=== PATIENT | female | born 1975 | race Caucasian/White ===

== ENCOUNTER 2021-02-16 20:46 | Emergency (ER) | payer OTHER, SELFPAY ==
--- NOTE | ~2021-02-16 | XR_ITS ---
EXAMINATION: XR wrist LT min 3V DATE: 02/17/2021 00:49 INDICATION: Distal left radius fracture status post reduction. TECHNIQUE: 3 views of left wrist were obtained. COMPARISON: Left wrist radiographs 02/16/2021 FINDINGS: There is a comminuted fracture of distal radius with involvement of the distal radioulnar j oint and distal articular surface. The main distal fracture fragment demonstrates impaction and dorsa l angulation. There is 22 degrees dorsal tilt of the distal articular surface. Ulnar styloid is intac t. Joint spaces are normal. IMPRESSION: 1. Comminuted intra-articular fracture of distal radius with improvement in alignment. Reviewed, dictated and finalized at location A. MAPPER IMPRESSION: 1. Comminuted intra-articular fracture of distal radius with improvement in ali gnment.
--- NOTE | ~2021-02-16 | XR_ITS ---
EXAMINATION: XR wrist LT 2V EXAM DATE: 02/16/2021 21:21 INDICATION: Fall, left wrist pain and swelling. Initial encounter. TECHNIQUE: Frontal, oblique, lateral projections of the left wrist. There is no prior study for dayday benítez. FINDINGS: There is acute closed posttraumatic mildly comminuted fracture of the left radial distal m etaphysis extending into the radiocarpal joint. There is about 40 degrees of posterior angulation. No significant displacement. Fracture line is identified extending into the radiocarpal joint. IMPRESSION: Acute left radial distal metaphyseal intra-articular fractures. Posterior angulation. Reviewed, dictated and finalized at location A. TY SHERIFF BAILIFF IMPRESSION: Acute left radial distal metaphyseal intra-articular fractures. Pos terior angulation.
[2021-02-16 21:04] VITALS: BP 104/56; PULSE 73; RESP 16; TEMP 36.4; O2SAT 100
[2021-02-16] MEDS: ONDANSETRON HCL ODT 4 MG TABLET PO (23:03)
[2021-02-16] MEDS: HYDROcodone/acetaminophen (*CRX) 7.5-325 MG TABLET 1 TAB PO (23:03)
[2021-02-16] MEDS: IBUPROFEN 400 MG TABLET 800 MG PO (23:03)
--- NOTE | 2021-02-16 23:35 | PC.NURSE ---
Assumed care of pt at this time. EDP Dr Abdi at bedside for assessment.
[2021-02-16 23:50] VITALS: BP 109/68; PULSE 84; RESP 18; O2SAT 99
--- NOTE | 2021-02-17 00:13 | PC.NURSE ---
EDP Dr Abdi at bedside for block/splint placement.
--- NOTE | 2021-02-17 00:38 | ED.UPPEXIN ---
HPI - Extremity Injury (Upper) General Chief Complaint: Extremity Injury, Upper Stated Complaint: Left wrist injury Time Seen by Provider: 02/16/21 22:55 Source: patient and family Limitations: no limitations History of Present Illness HPI narrative: Patient tripped and fell prior to arrival to the emergency room, complaining of left wrist pain and deformity. Patient denies other injuries. Related Data Allergies Allergy/AdvReac Type Severity Reaction Status Date / Time No Known Allergies Allergy Verified 02/16/21 21:03 Review of Systems Review of Systems: CONSTITUTIONAL: Denies fever, chills, or sweats. EYES: Denies visual changes, redness, or discharge. ENT: Denies rhinorrhea, congestion, sore throat, or otalgia. CARDIOVASCULAR: Denies chest pain, palpitations, or edema. RESPIRATORY: Denies cough or dyspnea. GASTROINTESTINAL: Denies abdominal pain, nausea, vomiting, or diarrhea. GENITOURINARY: Denies dysuria or hematuria. SKIN: Denies rash or itching. MUSCULOSKELETAL: Denies back pain, joint pain, or myalgia. NEUROLOGIC: Denies headache, numbness, or weakness. PSYCHIATRIC: Denies anxiety or depression. Exam Narrative: General appearance: Well-developed, well-nourished Skin: Normal color Head: Normocephalic, nontraumatic Neck: Supple, nontender Chest and respiratory: Airway patent, no respiratory distress, no accessory muscle use Heart: Regular rate/rhythm Abdomen: Soft, nontender, no organomegaly, quiet bowel sounds Vascular: Normal peripheral pulses, normal capillary refill. Musculoskeletal: Left wrist deformity, pain, swelling Neurologic: Alert and oriented ?3, Course Course Emergency Course: Stable Vital Signs Vital signs: Vital Signs Temperature 36.4 C L 02/16/21 21:04 Pulse Rate 73 02/16/21 21:04 Respiratory Rate 16 02/16/21 21:04 Blood Pressure 104/56 L 02/16/21 21:04 Pulse Oximetry 100 02/16/21 21:04 Temperature 36.4 C L 02/16/21 21:04 Pulse Rate 74 02/17/21 01:13 Respiratory Rate 18 02/17/21 01:13 Blood Pressure 105/64 02/17/21 01:13 Pulse Oximetry 98 02/17/21 01:13 Procedures Orthopedic Fracture Reduction Fracture #1: Fracture Reduction date: 02/17/21 Fracture Reduction time: 01:13 Time Out Performed: Yes (25 minutes) Side: left Fracture Reduction Location: other (wrist) Analgesia: hematoma block Pre-Procedure Neuro Vascular Exam: normal Technique: direct manipulation and traction/counter-traction Post Reduction X-rays Demonstrate: acceptable reduction Post-reduction neuro exam: intact Post-reduction vascular exam: intact Splint Applied: Yes Patient Tolerated Procedure: well MDM - Extremity Injury (Upper) Imaging Data Radiologist's impression: Impressions Wrist X-Ray 02/16/21 21:32 IMPRESSION: Acute left radial distal metaphyseal intra-articular fractures. Posterior angulation. Critical Care Time Critical Care Time Critical Care Time: No Discharge Plan Discharge Clinical Impression: Fracture of wrist Qualifiers: Encounter type: initial encounter Fracture type: closed Laterality: left Qualified Code(s): S62.102A - Fracture of unspecified carpal bone, left wrist, initial encounter for closed fracture Patient Disposition: Home, Self-Care Condition: Stable Instructions: Antibiotic Form, Wrist Fracture in Adults (ED), How to Use a Sling (ED), Splint Care (ED), Closed Reduction (ED) Additional Instructions: Call orthopedic for appointment Prescriptions: New hydrocodone-acetaminophen 5-325 mg tablet 1 tablet PO Q6H Qty: 24 RF: 0 Follow-up/Referrals: PHYS
[2021-02-17 01:13] VITALS: BP 105/64; PULSE 74; RESP 18; O2SAT 98
== END 2021-02-17 01:22 | disposition home or self-care (01) ==
PROVIDERS: Emergency Provider Emergency Medicine
DX: S52.572A Other intraarticular fracture of lower end of left radius, initial encounter for closed fracture (principal); W01.0XXA Fall on same level from slipping, tripping and stumbling without subsequent striking against object, initial encounter
CPT/HCPCS: 25605; 73100; 73110; 99285; A4565; A9270

== ENCOUNTER 2021-02-23 01:44 | Day surgery (SDC) | payer SELFPAY ==
[2021-02-19 08:31] VITALS: BMI 17.9
--- NOTE | 2021-02-19 09:05 | PC.NURSE ---
Addendum entered by Patience Britton RN 02/19/21 09:17: SURGERY 02/23/21 AT 10:30 AM ARRIVE AT 8:30 AM Original Note: Report to the Outpatient Waiting Room, entrance under the green pavilion located off [facility], at time _1000 on date _02/25/21 . OR Time:1200 . - You and your visitor will be asked a series of questions to screen for COVID 19 for your protection. - A mask is required within the hospital. - Only one visitor is allowed at this time. Patient visitors will be guided where to wait when not with patient. Preoperative COVID Testing Requirements: No COVID Test needed if: (proof is required; if not received patient will have Rapid Test prior to entry) - Patient has received COVID Vaccine at least 14 days prior to procedure date or - Patient has positive COVID test result within last 90 days of surgery date. COVID Test needed if above criteria is not met If not COVID vaccinated a COVID test must be conducted within 72 hours of surgery and patient is asked to isolate self from time of testing until procedure. You will go to the [email or web address] for your COVID testing. The [facility] Testing site is located at the corner of [address] [facility]. You will only be called if COVID results are positive and your surgeon may reschedule your elective surgery date. Patients may have clear liquids (water, carbonated beverages, clear teas, apple juice) until 3 hours prior to surgery with a maximum of 20 ounces. - No food from midnight until time of surgery - Infants may have breast milk until 4 hours before surgery, infant formula 6 hours prior to surgery. - Children will be allowed to drink immediately following surgery. If applicable, please bring a bottle or sippy cup to assist with drinking. Juice, water, soda, and popsicles are readily available. For infants on formula, please bring formula the day of surgery. Pacifiers are allowed. Take the following medications with a SIP of water the morning of surgery: NONE Medications to discontinue per physician NONE Date to take last dose Please no make-up, nail panamanian, hairspray, perfume, deodorant, or body powder the day of surgery. No jewelry (including any body piercings) or valuables the day of surgery, leave them at home. Please take a shower or bath the night before, or the morning of, surgery with an antibacterial soap. Wear comfortable, loose fitting clothing. Children are encouraged to wear pajamas. - Jewelry must be removed prior to entering the operating room. Rings and piercings that are not removed may be cut off. - The hospital will not accept responsibility for valuables. - Please leave all valuables, including medications, at home the day of surgery. If you are going home after surgery, a licensed short haul driver must drive you home. - NO public transportation without another adult. - We recommend that an adult stay with you for 24 hours following discharge. - We also recommend that you do not drive, make important decision, drink alcoholic beverages, or take any drugs that were not prescribed by your health care provider for at least 24 hours after your discharge time. For Pediatric surgeries, we recommend two adults accompany the child home (only one inside the building at this time). Follow any additional instructions given to you from your surgeon. VERBAL instructions given to __PATIENT AND SON ESTELA SCHOFIELD and asked if any additional questions and then verbalized understanding. Patient advised to call surgeon office or pre surgery nurse liaison [phone] if any additional questions.
[2021-02-19 09:32] VITALS: BP 102/76; PULSE 60; RESP 16; TEMP 37.1; O2SAT 100
[2021-02-23] VITALS (9 sets, daily range): BP systolic 101–126; BP diastolic 67–81; PULSE 57–83; RESP 12–20; TEMP 36.2–37.4; O2SAT 98–100
--- NOTE | ~2021-02-23 | XR_ITS ---
EXAMINATION: XR surgery orthopedic EXAM DATE: 02/23/2021 11:45 INDICATION: ORIF LT Wrist. TECHNIQUE: Fluoroscopy used during XR surgery orthopedic performed by Dr. Otoniel Whiteside MD. Radi ologist was not present for the imaging or procedure. Total fluoroscopic time of 31 seconds The DA P for this procedure was 0.019 mGym2. A total of 2 images sent to PACS from the exam plus dose repor t. FINDINGS: Frontal and lateral projections demonstrate comminuted left distal radial metaphyseal intr a-articular fractures, surgical fixation with a volar plate, supporting screws. Correlate with cece brasher note. IMPRESSION: Fluoroscopy used during left radial ORIF. Reviewed, dictated and finalized at location A. [employer] ARTISTIC DIRECTOR
--- NOTE | 2021-02-23 08:55 | WPDANESEPPF ---
Anes - Initial Pre Proc Eval Procedure: Operation Date: 02/23/21 10:30 Proposed Procedures p Open Reduction Internal Fixation Left Distal Radius - Otoniel Whiteside MD Date/Time: 02/23/21 08:55 Surgeon: Otoniel Whiteside MD Pre Op Diagnosis: left distal radius fx Patient Data Age: 45 Gender: F Height: 1.57 m Weight: 44.5 kg Last Vital Signs Temp 37.1 C 02/19/21 09:32 Pulse 60 02/19/21 09:32 Resp 16 02/19/21 09:32 BP 102/76 02/19/21 09:32 Pulse Ox 100 02/19/21 09:32 Allergies Allergy/AdvReac Type Severity Reaction Status Date / Time No Known Allergies Allergy Verified 02/19/21 08:41 Home Medications Medication Instructions Recorded Confirmed Type hydrocodone-acetaminophen 1 tablet PO Q6H #24 tablet 02/17/21 02/23/21 Rx acetaminophen [Tylenol Extra 500 mg PO Q6H PRN 02/19/21 02/23/21 History Strength] ibuprofen 200 mg PO Q6H PRN 02/19/21 02/23/21 History Patient hx anesthesia problems: none Family hx anesthesia problems: none Results Review: All pre-operative results and documents have been reviewed as part of the pre-operative evaluation. [facility] Surgical History Surgical History (Updated 02/23/21 @ 08:55 by Khalif Godinez DO) History of appendectomy Social History Social History Smoking status: Never smoker Alcohol intake: never Substance use: never Living arrangements: with family Spiritual care concerns: No Anes - Eval Final PreProcedure Day of Procedure 02/23/21 08:55 Patient weight: thin Heart: regular rate and rhythm Lungs: clear to auscultation and normal air movement Airway: Mallampati scale class II Neurological: alert and oriented Last oral intake: >/= 8 hours ASA classification: I Emergent: no Anesthetic plan: proceed Anesthesia type and monitoring: general LMA and standard monitoring Results Review: All pre-operative results and documents have been reviewed as part of the pre-operative evaluation. Informed Consent: The patient's anesthetic plan and its attendant risks and benefits were discussed with the patient/family/POA. Questions were solicited and answers provided to the satisfaction of the patient/family/POA.
--- NOTE | 2021-02-23 08:56 | WPDANESPNB ---
Anes - Peripheral Nerve Block Date/Time: 02/23/21 08:56 I have discussed with the patient/family/POA the placement of a peripheral nerve block for post-operative pain management, including associated risks, benefits, complications, and side effects. Alternative methods of post-operative analgesia were detailed. Questions were solicited and answers provided to the satisfaction of the patient/family/POA. Time-Out: A pre-procedural Time-Out was completed immediately before starting the procedure and confirmed: Patient Identification, Site, Procedure, Patient Position and the Availability of Requisite Equipment. Clinical Indications: Acute post-operative pain management requested by the operative surgeon. Nerve Block Insertion Note Anes-nerve block: supraclavicular left Patient position: supine Skin prep: chlorhexidine Needle: 22 gauge, stimulating, insulated echogenic needle. Needle length: 50 mm Technique: ultrasound Injectate: bupivacaine 0.5% with epi 5 mcg/ml (25cc- no epi) Observations: tolerated well Complications: none Procedure start time:: 1018 Procedure end time:: 1022
[2021-02-23] MEDS: LACTATED RINGERS 1,000 ML 30 ML IV CONT ×2 (09:30→12:05)
[2021-02-23] MEDS: KETOROLAC 15 MG/ML VIAL (*BKC) IV PUSH (09:40)
[2021-02-23] MEDS: ACETAMINOPHEN 500 MG TABLET 1000 MG PO (09:40)
--- NOTE | 2021-02-23 09:55 | WPDHPUPDATE1 ---
History and Physical Update Update Date/Time: 02/23/21 09:55 History and Physical has been reviewed, including an updated exam of the patient. There are NO changes in the patient's condition. Risks, benefits, and alternatives have been discussed and questions answered. Patient agrees to proceed with procedure.
[2021-02-23] MEDS: ceFAZolin 2 GM/D5W 50 ML 2 GM/50 ML BAG IVPB (10:39)
--- NOTE | 2021-02-23 12:09 | P.OP_ITS ---
Procedure Note - Detailed Date of Procedure 02/23/21 Pre-op Diagnosis left distal radius fx Post-op Diagnosis same Procedure Performed ORIF comminuted intra-articular left distal radius fracture Surgeon Otoniel Whiteside MD Wedding Designer Rolanda Otoole Anesthesia general and regional Indications The patient has developed numbness in her left hand since I had seen her last week in the office with this unstable comminuted intra-articular left distal radius fracture. This changed the classification of this from an urgent case to an emergent case. Description of Procedure The patient was identified and the proper side identified. In the preop holding area, the anesthesia team performed a left upper extremity block. She was taken back to the operating room, transferred to the or table positioning supine taking care to pad her torso and extremities. After general anesthetic induction and intubation, a nonsterile tourniquet was placed high on the left arm which was prepped and draped in the usual sterile fashion. The extremity was exsanguinated and tourniquet inflated to 200 mmHg remaining up for approximately 44 minutes. A volar longitudinal incision was made along the FCR tendon distally. The subcutaneous tissue was sharply dissected protecting neurovascular structures. The FCR tendon was released from its sheath and retracted ulnarly. This allowed for the deep fascia of the forearm to be divided longitudinally in line with the incision. Care was taken to protect the volar compartment structures as well as the radial nerve and radial vascular structures. The pronator quadratus was elevated off of the distal radius allo wing for inspection of the fracture site. The fracture fragments were disimpacted and able to be realigned virtually anatomically with fluoroscopic assistance. They were secured in this position with a left, narrow, short plate from the DVR set. The plate was applied with fluoroscopic visualization to avoid penetration of the joint and to ensure optimal hardware placement. Once the plate was secure the overall construct was assessed fluoroscopically on the AP and lateral views. The virtually anatomic reduction was held very nicely. The construct was stable. The wound was irrigated with a copious amount of sterile antibiotic solution. Skin edges were reapproximated with 3-0 Stratafix and then tissue adhesive for the skin. Sterile dressing was applied. Tourniquet was released. A well-padded short-arm volar wrist splint was fashioned. The procedure was well tolerated. There were no known intraoperative complications. Estimated blood loss was negligible. Estimated Blood Loss -5.0 Tourniquet Time 44 Drains No Packing No Pathology none sent Complications No immediate complications Condition stable Disposition PACU
== END 2021-02-23 14:20 | disposition home or self-care (01) ==
PROVIDERS: Visit Provider Orthopaedic Surgery
PROC: (CPT 25575; principal; 2021-02-23 10:30)
DX: S52.572A Other intraarticular fracture of lower end of left radius, initial encounter for closed fracture (principal); G89.18 Other acute postprocedural pain; W19.XXXA Unspecified fall, initial encounter
CPT/HCPCS: 25608; 64415; A9270; C1713; J0690; J1100; J1885; J2250; J2370; J2405; J2704; J3010; J7120

== ENCOUNTER 2021-03-07 22:45 | Emergency (ER) | payer SELFPAY ==
[2021-03-07 22:46] VITALS: BP 129/76; PULSE 97; RESP 17; TEMP 36.6; O2SAT 100
--- NOTE | 2021-03-07 23:27 | PC.NURSE ---
Pt in wr with family member who is refusing to leave. Pt arrives with maksim wrap to left lower arm.
--- NOTE | 2021-03-07 23:30 | PC.NURSE ---
Pt's son arrived in ED lobby requesting to 'drop off paperwork'. This RN explained visitor policy, and allowed pt's son to drop off items in wr. business enterprise officer arrived and attempted to get son and another visitor to leave. Son left, but other visitor refused.
--- NOTE | 2021-03-08 00:03 | PC.NURSE ---
Pt's visitor and pt ambulated to exit of ED wr, where visitor clearly stated, We are leaving. we want to cancel our visit. This RN acknowledged this and was in process of checking in arriving pt, but visitor clearly angry and left ED with pt with steady, even, unassisted gait.
== END 2021-03-07 23:55 | disposition left against medical advice (07) ==
DX: R25.9 Unspecified abnormal involuntary movements (principal)
CPT/HCPCS: 99199